=== PATIENT | male | born 1975 | race Caucasian/White ===

== ENCOUNTER 2017-10-08 05:30 | Day surgery (SDC) | payer OTHER, BC ==
[~2017-10-08] VITALS: Ht 175.3 cm; Wt 99.8 kg
[~2017-10-08 05:30] MED LIST: AMBIEN10 MG PO; BUPROPION HCL150 MG PO; CHANTIX1 EACH PO; CRESTOR20 MG PO; CYMBALTA60 MG PO; DICLOFENAC SOD100 G1; DICLOFENAC SODI50 MG PO; GLIPIZIDE ER2.5 MG PO; LISINOPRIL20 MG PO; MELOXICAM15 MG PO; METFORMIN HCL1000 MG PO; NEURONTIN300 MG PO; NIZATIDINE300 MG PO; OXYCONTIN10 MG PO; PRED-G 1% EYE DR5 ML OPTH; SEROQUEL XR300 MG PO; VITAMIN D50000 UNI1 PO; XANAX XR2 MG PO; ZOLPIDEM TARTRA10 MG PO
--- NOTE | 2017-10-08 08:59 | NUR ---
10/08/17 0858 Christina Valentine 3118-PATIENT ARRIVED TO PACU ON 6L MASK O2 SAT 100% NONAROUSABLE. ORAL AIRWAY IN PLACE. DRESSING TO LEFT ARM CDI ICE IN PLACE. ARM IN SLING. GOOD CAP REFILL AND WARMTH GROVER RADIAL PULSE DUE TO DRESSING. SR. RR EVEN
[2017-10-08] MEDS ORDERED: NORCO 10-325 T1 EACH PO (10:07)
--- NOTE | 2017-10-08 10:23 | NUR ---
PT IS BACK TO DS FROM PACU. HE HAS DRANK SEVERAL CUPS OF WATER, HE HAS TOLERATED APPLE SAUCE. HE REQUESTS A SANDWICH. RD BAIRES IS REVIEWED WITH PATIENT AND SPOUSE. CALL LIGHT WITHIN REACH. WILL REASSESS WITHIN THE HOUR.
--- NOTE | 2017-10-08 10:52 | NUR ---
PT IS ASSISTED UP TO THE BATHROOM. HE REPORTS BEING ABLE TO EMPTY HIS BLADDER. HE IS READY TO GO HOME.
--- NOTE | 2017-10-08 11:03 | NUR ---
PT IS GIVEN DC INSTRUCTIONS WITH PRESENT. BOTH VERBALIZE UNDERSTANDING AND ARE GIVEN THE OPPORTUNITY TO ASK QUESTIONS. PT IS WHEELED OUT TO THE CAR
--- NOTE | 2017-10-10 08:48 | OR ---
[facility] [address] [facility] [place], [place] [address] Signed DATE OF OPERATION: 10/08/2017 SURGEON: Erik Garrido MD PREOPERATIVE DIAGNOSIS: Biceps tendon rupture distal left elbow. POSTOPERATIVE DIAGNOSIS: Biceps tendon rupture distal left elbow. PROCEDURE: Repair of biceps tendon rupture. ANESTHESIA: General. SPECIMENS AND COMPLICATIONS: There were no specimens or complications. TOURNIQUET TIME: A little bit over an hour. WHAT WAS DONE: The patient was taken to the operating room. After anesthesia was induced and the airway secured, the left upper extremity was positioned, prepped and draped in a routine sterile fashion. The arm was exsanguinated with an Esmarch bandage and pneumatic tourniquet was inflated to 250 mmHg pressure. We made a small transverse incision about 3-1/2 cm distal to the antecubital flexion crease on the volar aspect of the forearm. Skin was divided sharply. Subcutaneous tissue was bluntly spread. The fascia was incised just along the ulnar aspect of the mobile wad. We then basically just used finger tip dissection to take this down to the radial tuberosity. We then gently exposed using a small periosteal elevator. Once we were satisfied with the exposure, we sought the biceps tendon. We were unable to find it in the distal incision. We therefore made a 2nd parallel incision about 4-1/2 cm proximal to the antecubital flexion crease over the musculotendinous junction of the biceps. Again, skin was divided sharply. Subcutaneous tissue was bluntly spread. We then gently incised the deep fascia just to the lateral side of the visible biceps muscle belly. We then primarily used blunt dissection to mobilize the distal biceps muscle and then followed down to the tendon, which was released with the blunt and minimal sharp dissection and then passed a whipstitch of FiberWire through the biceps tendon and delivered it into Electronically Signed By: ERIK GARRIDO MD 10/10/17 0848 PATIENT NAME: ILANA BARAHONA JR OPERATIVE REPORT DATE OF : 79 REPORT #: [id number] PHYSICIAN: ERIK GARRIDO MD PCP: LACEY HINOJOSA MD REPORT IS CONFIDENTIAL AND NOT TO BE RELEASED WITHOUT AUTHORIZATION [facility] [address] [place], [place] [address] Signed the distal incision. We then placed a small self-retaining retractor and prepared the bicipital tuberosity. We then drilled the spade tipped guide pin through it and then reamed the volar aspect with the 8 mm reamer. We then used the FiberWire previously placed in the biceps tendon to weave through the button. We then passed the button through the volar and then out the dorsal cortex and then flipped it into place. We then placed a suture pass through the tendon about 25 mm proximal to the tip of the tendon. We then gently tensioned the FiberWire and used the button to pull the tendon into the hole. We have to drilled in the proximal radius. We then tied the suture to itself and then passed the bioabsorbable screw somewhat medially and proximally to offer additional fixation. We then tied the suture we brought through the screw back to the basilar suture and then cut it off after four throws. At this point, we appeared to have a solid repair with excellent reconstitution of the biceps tendon tension. The wounds were gently irrigated and closed in standard fashion. Sterile dressings applied. Placed in a posterior splint, awakened, and taken to recovery room where he arrived in stable condition. Counts were correct and antibiotic protocols were followed. Erik Garrido MD WFB/MODL /[id number] Copies: ~ Electronically Signed By: ERIK GARRIDO MD 10/10/17 0848 PATIENT NAME: ILANA BARAHONA JR OPERATIVE REPORT DATE OF : 79 REPORT #: [id number] PHYSICIAN: ERIK GARRIDO MD PCP: LACEY HINOJOSA MD REPORT IS CONFIDENTIAL AND NOT TO BE RELEASED WITHOUT AUTHORIZATION
== END 2017-10-08 11:00 | disposition home or self-care (01) ==
LOC: DS 05:30
PROVIDERS: Orthopaedic Surgery
PROC: 0XQC0ZZ Repair Left Elbow Region, Open Approach (ICD-10-PCS; principal; 2017-10-08 06:45)
DX: S46.212A Strain of muscle, fascia and tendon of other parts of biceps, left arm, initial encounter (principal); E11.9 Type 2 diabetes mellitus without complications; I10 Essential (primary) hypertension; E78.00 Pure hypercholesterolemia, unspecified; F31.9 Bipolar disorder, unspecified; Z88.1 Allergy status to other antibiotic agents; Z88.8 Allergy status to other drugs, medicaments and biological substances; Z79.899 Other long term (current) drug therapy; X58.XXXA Exposure to other specified factors, initial encounter; Y99.0 Civilian activity done for income or pay
CPT/HCPCS: 01716; 64417; 76942; C1713; J0690; J0735; J1100; J1885; J2250; J2405; J2704; J2795; J3010; J3475; J7120

== ENCOUNTER 2017-12-17 13:47 | Observation (INO) | payer BC, OTHER ==
[~2017-12-17] VITALS: Ht 175.3 cm; Wt 93.4 kg
[~2017-12-17 13:47] MED LIST changes: +NORCO 10-325 T1 EACH PO
[2017-12-17] MEDS ORDERED: AMBIEN10 MG PO (14:12)
[2017-12-17] MEDS ORDERED: XANAX1 MG PO (16:51)
[2017-12-17] MEDS ORDERED: WELLBUTRIN SR200 MG PO (16:53)
[2017-12-17] MEDS ORDERED: GABAPENTIN800 MG PO (16:55)
[2017-12-17] MEDS ORDERED: VITAMIN D250000 UNIT PO (16:56)
[2017-12-17] MEDS ORDERED: OXYCODONE HCL10 MG PO (16:58)
--- NOTE | 2017-12-18 08:59 | CONS ---
[facility] [address] [place], [place] [address] Signed DATE OF CONSULTATION: 12/17/2017 CHIEF COMPLAINT: Right mid quadrant and right upper quadrant abdominal pain. HISTORY OF PRESENT ILLNESS: Masood is a 42-year-old otherwise healthy gentleman. 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 He tore his biceps tendon recently lifting a very heavy truck battery. Dr. Ny had to repair that, so he has been off work while he is healing. He woke up this morning with very significant right mid quadrant and right upper quadrant abdominal pain. When it did not improve, he came to emergency room for evaluation. In the emergency room, his vital signs were fine, he was clearly tender in that kind of right mid quadrant and right upper quadrant area with an elevated white count, so he ended up getting a CT scan of the abdomen and pelvis. He does have what looks like two stones in his gallbladder, but his appendix is in the retrocecal position coming up along the gutter, and he is tender in that same location on physical exam. He has a stone in the appendix as well and he has a thickened appendix, all consistent with his appendicitis. Consequently, I was asked to see him as a general surgeon on-call. He has received some initial IV fluids, pain control, and antibiotics, and we moved him from the ER down to our medical-surgical floor. PAST MEDICAL HISTORY: Diet-controlled type 2 diabetes, hypertension, hypercholesterolemia, bilateral biceps tendon ruptures. PAST SURGICAL HISTORY: Murali fundoplication [place] [address] Warren Lopez in [place], [place], bilateral carpal tunnel release, right biceps tendon repair with Dr. Edwards in 2015, and then the left biceps tendon repair with Dr. Edwards here just in the last few days. SOCIAL HISTORY: He smokes several small cigars in a day. He has an occasional drink. He is to [employer], at [phone]. He has a 13-year-old son. He works at our [employer]. He prefers the [facility]. Dr. Moncho Mckeon is his primary care provider. FAMILY HISTORY: Mom had diabetes and breast cancer. Dad was a heroin addict, ended up with hepatitis C virus as well as cirrhosis of the liver. REVIEW OF SYSTEMS: Masood had 10 systems reviewed and there was nothing new to add. He is not sure if there Electronically Signed By: SYDNEY ROBISON MD 12/18/17 0859 PATIENT NAME: MASOOD BARAHONA CONSULTATION DATE OF : 79 REPORT #: [id number] PHYSICIAN: SYDNEY ROBISON MD PCP: MONCHO MCKEON MD REPORT IS CONFIDENTIAL AND NOT TO BE RELEASED WITHOUT AUTHORIZATION [facility] [address] [place], [place] [address] Signed is any metal in the body. ALLERGIES: Erythromycin Base and rosuvastatin. MEDICATIONS: Duloxetine, Ambien, Xanax, Clare 10 mg for his surgical repair of the tendon, his bupropion, the gabapentin, the vitamin D, and zolpidem. PHYSICAL EXAMINATION: VITAL SIGNS: Blood pressure 134/93, heart rate 79, his respiratory rate 16, temperature is 98.6, is 100% on room air. GENERAL: On exam, Masood is a 42-year-old gentleman lying supine in his hospital bed. He is not systemically ill or toxic, but he clearly is having some pain in the right side of his abdomen. He is a good historian. LUNGS: Clear to auscultation. HEART: Regular rhythm. ABDOMEN: Generally soft and flat, but he clearly has that tenderness along that right mid quadrant of his abdomen and somewhat high towards the costal margin. LABORATORY DATA: His white blood cell count 11.2, his neutrophils are 77. His liver function tests are negative. His urine specific gravity is 1.058. His albumin is 4.7. RADIOGRAPHIC STUDIES: He had a CT scan of his abdomen and pelvis. I reviewed the report as well as the images. It looks like he has two stones in the gallbladder, but he clearly has retrocecal appendix up to right gutter, thickened and inflamed, and looks like he has a stone in his appendix. ASSESSMENT/PLAN: Masood is a 42-year-old gentleman, who presents with acute appendicitis. His exam is consistent with the CT scan findings. I reviewed all this with Masood in detail. We reviewed the location and function of the appendix. We have reviewed laparoscopic versus open appendectomy. We have reviewed the expected intraop and postop course. We also reviewed the risk of surgery including, but not limited to bleeding, infection, scarring, change in contour of the skin, damage to bowel, appendiceal stump leak, postoperative intraabdominal abscess, incisional hernias and other unforeseen comorbidities. He has expressed understanding and would like to proceed. Unfortunately, we have 2 emergent cases ahead of his. Consequently, we are going to give him additional antibiotics, additional pain control, and a mild sliding scale for his insulin, and if necessary we will do it first thing in the morning by myself. He has expressed understanding, agrees the above plan. Electronically Signed By: SYDNEY ROBISON MD 12/18/17 0859 PATIENT NAME: MASOOD BARAHONA JR CONSULTATION DATE OF : 79 REPORT #: [id number] PHYSICIAN: SYDNEY ROBISON MD PCP: MONCHO MCKEON MD REPORT IS CONFIDENTIAL AND NOT TO BE RELEASED WITHOUT AUTHORIZATION [address], [place] [address] Signed Sydney Robison MD ALB/MODL /[id number] cc: MD Moncho Traore MD Copies: SYDNEY ROBISON MD, MALCOLM MD ~ Electronically Signed By: SYDNEY ROBISON MD 12/18/17 0859 PATIENT NAME: MASOOD BARAHONA JR CONSULTATION DATE OF : 79 REPORT #: [id number] PHYSICIAN: SYDNEY ROBISON MD PCP: MONCHO MCKEON MD REPORT IS CONFIDENTIAL AND NOT TO BE RELEASED WITHOUT AUTHORIZATION
--- NOTE | 2017-12-18 14:38 | OR ---
[facility] [address] [place], [place] [address] Signed DATE OF OPERATION: 12/18/2017 SURGEON: Sydney Robison MD PREOPERATIVE DIAGNOSIS: Acute appendicitis. POSTOPERATIVE DIAGNOSIS: Acute suppurative appendicitis. PROCEDURE: Laparoscopic appendectomy. ESTIMATED BLOOD LOSS: None. INDICATIONS: Masood is a 42-year-old gentleman, who awoke yesterday morning with pain in the right upper quadrant just below his costal margin and out laterally. The pain would not go away, so he decided to come in the emergency room for evaluation. He was tender in that area if not localized peritonitis with an elevated white count with normal liver function tests. He ended up with CT scan of the abdomen and pelvis and he does have a couple of stones in his gallbladder, but more importantly, he had a retrocecal appendix that was coming up along the right gutter, which was thickened and inflamed and it looked like there was a stone in the appendix. Consequently, I was asked to admit him as a general surgeon on-call. He was hydrated and given IV fluids and antibiotics and pain control. We had 2 surgeries already going last night, so pushed just late in the evening, so we put him on first thing in the morning. Repeat labs this morning showed that his white count actually decreased to just over 5. He had no fever overnight and was not tachycardic. 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 I had met with Masood in the hospital and I had a long discussion with him. We reviewed his findings. We reviewed the location and function of the appendix. I reviewed with him why he was having pain higher than most patients with respect to appendicitis. We also reviewed laparoscopic versus open appendectomy. He understands expected intraop and postop course. There is risk to surgery including, but not limited to bleeding, infection, scarring, change in contour of the skin, damage to bowel, appendiceal stump leak, postoperative intraabdominal abscess, incisional hernias, and other unforeseen comorbidities. He had expressed understanding and wished to proceed. Electronically Signed By: SYDNEY ROBISON MD 12/18/17 1438 PATIENT NAME: MASOOD BARAHONA OPERATIVE REPORT DATE OF : 79 REPORT #: [id number] PHYSICIAN: SYDNEY ROBISON MD PCP: MONCHO HINOJOSA MD REPORT IS CONFIDENTIAL AND NOT TO BE RELEASED WITHOUT AUTHORIZATION [facility] [address] [place], [place] [address] Signed PROCEDURE NOTE: Masood was taken into our operating room and placed in the supine position under general endotracheal tube anesthesia. He was already on preoperative antibiotics along with subcutaneous heparin. SCDs were utilized. A Guzman catheter was inserted with return of clear yellow urine without difficulty. He was then prepped and draped in the usual sterile fashion. All trocars were placed in his usual positions under direct visualization of the camera without difficulty. I can easily localize his cecum and I followed the anterior tinea coli down to the base of the appendix and it traveled retrocecal and up in the right gutter. With blunt dissection, I was able to separate that from the lateral abdominal wall. There was just a little bit of a pocket there where the appendix was lying in that exact area he was having pain. The distal one-half of the appendix was thickened and inflamed along with the mesoappendix. We cleared off the base of the appendix with the help of the cautery, divided it from the cecum with the help of a linear stapler. We used a vascular load on linear stapler and divided the mesoappendix as well. All hemostasis was excellent. The appendix was then placed into an EndoCatch bag. The right upper quadrant was then irrigated and suctioned out until clear. We used our laparoscopic suturing device to pass 0 Vicryl suture on either side of the fascia of the right subcostal trocar site. This was tied down to close this fascia primarily. After this, the gas was allowed to escape and the remaining 2 trocars were removed. We pulled the appendix out through the supraumbilical trocar site. The fascia of the supraumbilical trocar site was then closed with interrupted [id number] and simple 0 Vicryl sutures. Local anesthetic was injected into all trocar sites. Each trocar site was irrigated and suctioned out until clear. A 3-0 Monocryl suture was used to bring the skin and dermis together for each trocar site. Dry gauze and tape was applied on each incision. Masood was then awakened from his anesthesia, extubated in the OR, and taken to recovery room in stable condition. Sydney Robison MD ALB/MODL /[id number] cc: MD Moncho Traore MD Electronically Signed By: SYDNEY ROBISON MD 12/18/17 1438 PATIENT NAME: MASOOD BARAHONA OPERATIVE REPORT DATE OF : 79 REPORT #: [id number] PHYSICIAN: SYDNEY ROBISON MD PCP: MONCHO HINOJOSA MD REPORT IS CONFIDENTIAL AND NOT TO BE RELEASED WITHOUT AUTHORIZATION [address] [place], [place] [address] Signed Copies: SYDNEY ROBISON MD, MALCOLM MD ~ Electronically Signed By: SYDNEY ROBISON MD 12/18/17 1438 PATIENT NAME: MASOOD BARAHONA JR OPERATIVE REPORT DATE OF : 79 REPORT #: [id number] PHYSICIAN: SYDNEY ROBISON MD PCP: MONCHO HINOJOSA MD REPORT IS CONFIDENTIAL AND NOT TO BE RELEASED WITHOUT AUTHORIZATION
[2017-12-18] MEDS ORDERED: VITAMIN B-121000 MC2 SL (18:20)
[2017-12-18] MEDS ORDERED: L-METHYLFOLATE7.5 M1 PO (18:23)
[2017-12-20] MEDS ORDERED: LEVAQUIN500 MG PO (07:33)
[2017-12-20] MEDS ORDERED: FLAGYL500 MG PO (07:33)
[2017-12-20] MEDS ORDERED: OXYCODONE HCL10 MG PO (07:35)
--- NOTE | 2017-12-21 11:12 | DS ---
[facility] [address] [place], [place] [address] Signed ADMISSION DATE: 12/17/2017 DISCHARGE DATE: 12/20/2017 FINAL DIAGNOSIS: Acute suppurative appendicitis. PROCEDURE: Laparoscopic appendectomy. HISTORY OF PRESENT ILLNESS: Masood is a 42-year-old gentleman who had awoke early in the morning with pain laterally in the right mid quadrant and right upper quadrant. He came to the emergency room for evaluation. He was certainly tender in that area if not localized peritonitis. White count was borderline high at 11.2 with negative liver function tests. CT scan of the abdomen and pelvis was performed and he had a retrocecal appendix lying in the right gutter up near the edge of the liver. He had a very thickened appendix with an appendicolith with periappendiceal inflammation. Consequently, I admitted him as a general surgeon on-call. HOSPITAL COURSE: Masood was admitted as above, hydrated and started on antibiotics. We at night, so we kept him overnight until first thing in the morning. We brought him down as our first case and he underwent a laparoscopic appendectomy for acute suppurative appendicitis. He was kept in the hospital. He had some high fever spikes the first day, so we resumed his cefepime and Flagyl. However, he tolerated clears quite well and was very active walking in the hallways. We had increased his oxycodone to q.4 hours to provide his better pain control. By the next day, he had just a couple of small fever spikes earlier in the day and late in the day, he did fine. He is up to full liquids, lots of flatus and walking the hallways quite vigorously with his son and his . His abdominal exam remains unremarkable. He is a little tender from the surgery, but otherwise doing quite well. Due to his progress and we are going to be discharging him to home. DISCHARGE PLANS AND MEDICATIONS: Masood will be discharged home with a prescription for Levaquin 500 mg p.o. daily for five days as well as Flagyl 500 mg p.o. t.i.d. for five days. We have written for oxycodone IR 10 mg tablets one tablet p.o. q.4 hours p.r.n. pain, dispense 40 tablets with no refills. We are going to resume all his chronic medications as he has here in the hospital. He is to follow a regular diet and perform his activities of daily living including walking up and down stairs, showering and bathing as needed. He is off work right now because of a biceps tendon repair. Nevertheless he should engage in any heavy Electronically Signed By: SYDNEY ROBISON MD 12/21/17 1112 PATIENT NAME: MASOOD BARAHONA JR DISCHARGE SUMMARY DATE OF : 79 REPORT #: [id number] PHYSICIAN: SYDNEY ROBISON MD PCP: MONCHO HINOJOSA MD REPORT IS CONFIDENTIAL AND NOT TO BE RELEASED WITHOUT AUTHORIZATION [address] [address] Signed pushing, pulling, or lifting more than 20 pounds with respect to the appendix surgery. For us after a month, he is fine without restrictions. He will follow up my office in 7 to 10 days for postoperative evaluation. He has expressed understanding and agrees with above plan. Sydney Robison MD ALB/MODL /[id number] cc: MD Moncho Traore MD Copies: SYDNEY ROBISON MD, MALCOLM MD ~ Electronically Signed By: SYDNEY ROBISON MD 12/21/17 1112 PATIENT NAME: MASOOD BARAHONA DISCHARGE SUMMARY DATE OF : 79 REPORT #: [id number] PHYSICIAN: SYDNEY ROBISON MD PCP: MONCHO HINOJOSA MD REPORT IS CONFIDENTIAL AND NOT TO BE RELEASED WITHOUT AUTHORIZATION
== END 2017-12-20 09:10 | disposition home or self-care (01) ==
LOC: ED 13:47 → MS 13:49 → ED 16:21 → MS 16:21
PROVIDERS: ADMIT Colon & Rectal Surgery
PROC: 0DTJ4ZZ Resection of Appendix, Percutaneous Endoscopic Approach (ICD-10-PCS; principal; 2017-12-18 07:30)
DX: K35.3 Acute appendicitis with localized peritonitis (principal); K38.1 Appendicular concretions; F41.9 Anxiety disorder, unspecified; E11.9 Type 2 diabetes mellitus without complications; I10 Essential (primary) hypertension; F43.10 Post-traumatic stress disorder, unspecified; E78.00 Pure hypercholesterolemia, unspecified; F17.290 Nicotine dependence, other tobacco product, uncomplicated; Z79.899 Other long term (current) drug therapy; Z88.1 Allergy status to other antibiotic agents; Z88.8 Allergy status to other drugs, medicaments and biological substances
CPT/HCPCS: 00840; 74177; 80053; 81001; 82150; 83690; 85025; 93005; 93010; 96361; 96365; 96366; 96367; 96372; 96374; 96375; 96376; 99285; 99406; G0378; J0330; J0692; J1170; J1644; J1815; J1885; J2060; J2250; J2405; J2543; J2704; J3010; J7120; Q9967

== ENCOUNTER 2018-08-17 20:31 | Emergency (ER) | payer OTHER ==
[~2018-08-17] VITALS: Ht 175.3 cm; Wt 93.4 kg
[~2018-08-17 20:31] MED LIST changes: +FLAGYL500 MG PO; +GABAPENTIN800 MG PO; +L-METHYLFOLATE7.5 M1 PO; +LEVAQUIN500 MG PO; +OXYCODONE HCL10 MG PO; +VITAMIN B-121000 MC2 SL; +VITAMIN D250000 UNIT PO; +WELLBUTRIN SR200 MG PO; +XANAX1 MG PO
--- OUTSIDE RECORDS SUMMARY | 2018-08-17 20:34 | XMS ---
PreManage Notification: ILANA BARAHONA Security Communication Analyst Events No recent Security Events currently on file CRITERIA MET - PDMP CARE PROVIDERS PCP_Unattributed Primary Care Current PHONE: Unknown Primary Care Primary Care Current PHONE: Unknown Jacques has no Care Guidelines for this patient. Renata VISIT COUNT (12 MO.) 2 [facility] TOTAL 2 NOTE: Visits indicate total known visits. ED/UCC VISIT TRACKING (12 MO.) 08/17/2018 20:32 [facility] TYPE: Emergency COMPLAINT: - OD INTENTIONAL 12/17/2017 13:48 [facility] TYPE: Emergency COMPLAINT: - ACUTE APPENDICITIS INPATIENT VISIT TRACKING (12 MO.) 12/17/2017 13:[address] [facility] TYPE: Medical Surgical COMPLAINT: - ACUTE APPENDICITIS DIAGNOSES: - Post-traumatic stress disorder, unspecified - Type 2 diabetes mellitus without complications - Appendicular concretions - Nicotine dependence, other tobacco product, uncomplicated - Right upper quadrant pain - Allergy status to other drugs, medicaments and biological substances status - Allergy status to other antibiotic agents status - Other group home (current) drug therapy - Anxiety disorder, unspecified - Essential (primary) hypertension - Acute appendicitis with localized peritonitis - Pure hypercholesterolemia, unspecified [email or web address]
[2018-08-17] MEDS ORDERED: LITHIUM CARBON300 MG PO (22:32)
[2018-08-17] MEDS ORDERED: TRAZODONE HCL100 MG PO (22:32)
--- NOTE | 2018-08-19 19:58 | EKG ---
[facility] [address] [facility] [place] [address] Signed Normal sinus rhythm Prolonged QT Abnormal ECG When compared with ECG of 30-SEP-2017 16:17, No significant change was found Confirmed by LIS RODRIGUEZ MD ([id number]) on 08/19/2018 7:58:23 PM Electronically Signed By: LIS RODRIGUEZ MD 08/19/181957 PATIENT NAME: ILANA BARAHONA JR Electrocardiogram DATE OF : 79 PHYSICIAN: LIS RODRIGUEZ MD REPORT #: [id number] REPORT IS CONFIDENTIAL AND NOT TO BE RELEASED WITHOUT AUTHORIZATION
== END 2018-08-18 08:13 | disposition home or self-care (01) ==
LOC: ED 20:31
DX: T42.6X2A Poisoning by other antiepileptic and sedative-hypnotic drugs, intentional self-harm, initial encounter (principal); T56.892A Toxic effect of other metals, intentional self-harm, initial encounter; F10.129 Alcohol abuse with intoxication, unspecified; Y90.7 Blood alcohol level of 200-239 mg/100 ml; E11.9 Type 2 diabetes mellitus without complications; I10 Essential (primary) hypertension; E78.00 Pure hypercholesterolemia, unspecified; Z88.1 Allergy status to other antibiotic agents; Z88.8 Allergy status to other drugs, medicaments and biological substances; Z79.899 Other long term (current) drug therapy
CPT/HCPCS: 80053; 80176; 80178; 81001; 84443; 85025; 93005; 93010; 96360; 96361; 99285-25; G0480; J3486; J7030